=== PATIENT | male | born 1965 | race Caucasian/White ===

== ENCOUNTER 2023-09-07 07:12 | Emergency (ER) | payer MEDICAID ==
[~2023-09-07] VITALS: Ht 172.7 cm; Wt 88.0 kg
[2023-09-07 07:16] VITALS: O2SAT 98
[2023-09-07] MEDS ORDERED: TETANUS, DIPHTHERIA, PERTUSSIS VAC/PF 0.5ML (>10YR OLD) IM ONE (11:15)
[2023-09-07] MEDS ORDERED: BACITRACIN ZINC OINT UDPKT TOP ONE (11:15)
[2023-09-07] MEDS ORDERED: LIDOCAINE HCL/PF 1% 10 MG/ML 5ML VIAL INFIL ONE (11:45)
[2023-09-07] MEDS ORDERED: ACET-2708 MT (12:03)
[2023-09-07] MEDS ORDERED: CEPH500C2 MT (12:03)
[2023-09-07 12:40] VITALS: BP 122/88; PULSE 82; RESP 18; TEMP 98.4
== END 2023-09-07 12:50 | disposition home or self-care (01) ==
LOC: ER 07:12
DX: S61.411A Laceration without foreign body of right hand, initial encounter (principal); X58.XXXA Exposure to other specified factors, initial encounter; Y93.89 Activity, other specified; Y92.89 Other specified places as the place of occurrence of the external cause; Y99.8 Other external cause status
CPT/HCPCS: 12001; 99283; J3490; Z7610

== ENCOUNTER 2023-09-09 09:58 | Emergency (ER) | payer MEDICAID ==
[~2023-09-09] VITALS: Ht 172.7 cm; Wt 83.9 kg
[~2023-09-09 09:58] MED LIST: ACET-2708 MT; CEPH500C2 MT
[2023-09-09 10:09] VITALS: BP 140/93; RESP 16; TEMP 98.2; O2SAT 97
[2023-09-09 10:13] VITALS: PULSE 62
== END 2023-09-09 10:14 | disposition home or self-care (01) ==
LOC: ER 09:58
DX: S61.411D Laceration without foreign body of right hand, subsequent encounter (principal); Z48.00 Encounter for change or removal of nonsurgical wound dressing; X58.XXXD Exposure to other specified factors, subsequent encounter
CPT/HCPCS: 99281